=== PATIENT | male | born 1995 | race Caucasian/White ===

== ENCOUNTER 2020-06-02 11:27 | Emergency (ER) | payer OTHER ==
[2020-06-02] MEDS ORDERED: Tetracaine 0.5% PF 4 ML BOT ONE (11:50)
[2020-06-02] MEDS ORDERED: Fluorescein Opthalmic Strip ONE ×2 (11:52→12:00)
== END 2020-06-02 12:18 | disposition home or self-care (01) ==
LOC: MADERS 11:27
DX: T15.01XA Foreign body in cornea, right eye, initial encounter (principal); F17.210 Nicotine dependence, cigarettes, uncomplicated; Z79.01 Long term (current) use of anticoagulants; Z86.718 Personal history of other venous thrombosis and embolism
CPT/HCPCS: 65222

== ENCOUNTER 2021-02-11 02:39 | Emergency (ER) | payer OTHER ==
[2021-02-11] MEDS ORDERED: Ibuprofen 800 MG TAB ONE (03:14)
== END 2021-02-11 03:19 | disposition home or self-care (01) ==
LOC: MADERS 02:39
DX: H60.91 Unspecified otitis externa, right ear (principal); Z86.718 Personal history of other venous thrombosis and embolism; F17.210 Nicotine dependence, cigarettes, uncomplicated; Z79.899 Other long term (current) drug therapy
CPT/HCPCS: 99282

== ENCOUNTER 2024-04-25 11:30 | Emergency (ER) | payer OTHER ==
[2024-04-25] MEDS ORDERED: Dexamethasone 4 MG TAB ONE (11:50)
== END 2024-04-25 12:23 | disposition home or self-care (01) ==
LOC: MADERS 11:30
DX: M54.50 Low back pain, unspecified (principal); F17.210 Nicotine dependence, cigarettes, uncomplicated
CPT/HCPCS: 99283; J8540